=== PATIENT | male | born 1950 | race Caucasian/White ===

== ENCOUNTER 2024-04-19 10:04 | Day surgery (SDC) | payer OTHER, SELFPAY ==
[2024-04-06 08:06] VITALS: BMI 36.2
[2024-04-06 08:34] LABS: % Basophils 0.1 % (0-2); % Eosinophils 1.8 % (0-6); % Immature Granulocytes 0.4 % (0-0.5); % Lymphocytes 29.5 % (20.5-51.1); % Monocytes 7.2 % (1.7-9.3); Absolute Eosinophils 0.1 10^3/uL (0-0.7); Absolute Monocytes 0.5 10^3/uL (0.1-0.6); Absolute Neutrophils 4.2 10^3/uL (1.4-6.5); Hematocrit 41.2 % (39.0-52.0); Hemoglobin 13.9 g/dL (13.0-18.0); Mean Corp Hgb Conc. 33.7 g/dL (33.0-37.0); Mean Corpuscular Hgb 29.8 pg (27.0-31.0); Mean Corpuscular Volume 88.2 fL (80.0-94.0); Mean Platelet Volume 10.6 fL (7.4-10.4); Nucleated Red Blood Cells % 0 % (-); Platelet Count 192 10^3/uL (130-400); Red Blood Cell Count 4.67 10^6/uL (4.70-6.10); Red Cell Dist. Width 13.3 % (11.5-14.5); White Blood Cell Count 6.8 10^3/uL (4.8-10.8)
[2024-04-06 08:38] LABS: ALT (SGPT) 34 U/L (0-50); AST (SGOT) 25 U/L (17-59); Albumin 4.3 g/dl (3.5-5.0); Alkaline Phosphatase 61 U/L (38-126); Blood Urea Nitrogen 33 mg/dl (9-20); Carbon Dioxide 30 mmol/L (22-30); Chloride 98 mmol/L (98-107); Estimated Creatinine Clearance 61 ml/min; Glucose 113 mg/dl (70-99); Magnesium 2.2 mg/dl (1.6-2.3); Potassium 4.3 mmol/L (3.5-5.1); Sodium 135 mmol/L (135-145); Total Bilirubin 0.8 mg/dl (0.2-1.3); eGFR > 60.00
[2024-04-06 08:48] LABS: INR 1.02; PT 13.9 Sec (11.4-14.6)
--- NOTE | 2024-04-06 09:14 | HPS.HSE ---
Family Physician
-
Family Physician: Lorena Mcknight
Chief Complaint
-
Paroxysmal atrial fibrillation.
History of Present Illness
The patient is a 73-year-old male presenting today for paroxysmal atrial fibrillation. The patient reports a rapid heart beat, dizziness, and an overall sense of uneasiness secondary to this diagnosis. He is on current pharmacological
therapy with Metoprolol Succinate. He reports he has been compliant with Eliquis for oral anticoagulation. He notes that his current symptoms greatly interfere with his activities of daily living and overall impact his quality of life. He is
interested in pursuing pulmonary vein isolation for further arrhythmia management. He denies any current complaints today such as chest pain, shortness of breath at rest, nausea, vomiting, diarrhea, lightheadedness, cough, sore throat, or fever.
Medical History
Past Medical History
Past Medical History: Reports Other
Additional Past Medical History:
1. Paroxysmal atrial fibrillation, pharmacological therapy with Metoprolol Succinate and oral anticoagulation with Eliquis.
2. Hypertension.
3. Dyslipidemia.
4. Mild aortic regurgitation.
5. 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
6. Suspected obstructive sleep apnea, sleep study advised.
7. Cholelithiasis, asymptomatic.
8. Fatty liver disease.
9. Hepatic and renal cysts.
10. Multinodular thyroid per chest CT.
11. BPH.
12. Seborrheic keratosis.
13. Skin cancer, status post excision.
14. Obesity, BMI 36.2.
Past Surgical History: Reports Other
Additional Past Surgical History:
1. Prostate surgery x2 for BPH.
2. Pancreatic mass excision (benign).
3. Bladder wall repair of laceration.
4. Colonoscopy x3.
Social History
Tobacco: Non-smoker
Alcohol: Other (Social. )
Personal:
Living: Other (He lives with his in a 3 story home. )
Family History
Family History: Not pertinent
Allergies / Home Medications
Allergy/Medication List:
Home medications:
1. Eliquis 2.5 mg p.o. twice a day.
2. Bee pollen with propolis 1 tablet p.o. twice a day.
3. Flaxseed oil 1000 mg p.o. daily.
4. Metoprolol Succinate 25 mg p.o. daily.
5. Benicar 40-25 mg p.o. daily.
6. Vitamin B complex 1 tablet p.o. daily.
7. Zinc 1 tablet p.o. daily.
Allergies: No known allergies.
Review of Systems
-
A 12 point ROS was completed and negative except as noted: Yes
Physical Exam
Vital Signs
Blood pressure 146/84. Heart rate 61. Respirations 18. Pulse ox 97% on room air.
Height 5 feet, 6.5 inches. Weight 103.3 kg. BMI 36.2.
Physical Exam
General: Well Developed, Well Nourished and No Apparent Distress
HEENT: NormoCephalic, Moist mucous membranes, Atraumatic and PERRLA
Respiratory: Clear
Cardiac: Regular Rhythm
GI: Soft, Non Tender, Non Distended and Other (Obese. )
Musculoskeletal: No Edema and Normal Gait & Station
Skin: Warm and Dry
Neuro: AO x 3 and Nonfocal/grossly intact
Laboratory Results
-
04/06/24 08:13
04/06/24 08:13
Laboratory Results
PT 13.9 Sec (11.4-14.6) 04/06/24 08:13
INR 1.02 04/06/24 08:13
Total Bilirubin 0.8 mg/dl (0.2-1.3) 04/06/24 08:13
AST 25 U/L (17-59) 04/06/24 08:13
ALT 34 U/L (0-50) 04/06/24 08:13
Alkaline Phosphatase 61 U/L (38-126) 04/06/24 08:13
Type and screen A positive.
EKG 04/06/2024: Normal sinus rhythm.
Chest CT 04/06/2024: Normal, conventional pulmonary venous anatomy. No left atrial filling defect/thrombus is identified. Multinodular thyroid gland for which a follow-up thyroid ultrasound is recommended if not previously performed.
Echocardiogram 07/13/2023: Normal biventricular systolic function. Moderate left atrial enlargement. Mild aortic regurgitation. Mild ectasia of proximal ascending aorta at 36 mm in diameter.
Impression/Plan
-
IMPRESSION/PLAN:
1. Paroxysmal atrial fibrillation: The patient will proceed with pulmonary vein isolation with Dr. Valentín Townsend on 04/19/24. The benefits and risks of the procedure have been explained to the patient. The patient understands these risks and wishes
to proceed. He will not be required to undergo a pre-procedural transesophageal echocardiogram as he has been compliant with his home oral anticoagulation. He is aware to continue Eliquis uninterrupted prior to his procedure. He will take no
medications the morning of his ablation.
2. Multinodular thyroid on chest CT: Numerous voice mails were left for the patient regarding his results and need for follow-up ultrasound from 04/07/2024 to 04/14/2024. A copy of his chest CT will be forwarded to his primary care physician for
further follow-up and management. A courtesy call was also provided to Dr. Lorena Mcknight's office pre-operatively. This result, however, should not delay his procedure and he can proceed as planned.
[2024-04-19] VITALS (19 sets, daily range): BP systolic 95–153; BP diastolic 61–92; BMI 35.0
[2024-04-19 12:51] LABS: ACT-LR - POC 247 Seconds (116-155)
[2024-04-19 13:10] LABS: ACT-LR - POC 248 Seconds (116-155)
--- NOTE | 2024-04-19 13:26 | ITS.CL.ABL ---
[facility] - Ablation
Ablation
Procedure Report:
ELECTROPHYSIOLOGY ABLATION STUDY
DATE:: April 19, 2024�����������������������������REFERRING: Dr. Patrick Alba
INDICATION: Paroxysmal supraventricular tachycardia in the form of atrial fibrillation. As above
HISTORY: See H and P.� As above
ANTIARRHYTHMIC DRUG: Metoprolol
PRE-PROCEDURE YUE: No intracardiac thrombus on intracardiac ultrasound
PRESENTING RHYTHM: Sinus bradycardia
'TIME-OUT':��called and confirmed.
SEDATION/ANESTHESIA:��provided via the anesthesia department using general anesthesia (LMA).
INTRAVENOUS/ARTERIAL ACCESS:
Right femoral venous - 8Fr
Left femoral venous - 8 Fr, 6 Fr
Ultrasound guidance for bilateral femoral vein access was utilized by me to obtain access with demonstration of normal anatomy
CHADS-VASC Score:
HAS-Bled Score
PROCEDURE:
1.��A decapolar CS catheter was placed within the CS for mapping and pacing.��This was also used as the reference catheter for the 3-D map.
2. The intracardiac ultrasound catheter was positioned in the RA to identify the FO for targeting of transseptal puncture, assist��in identification of the pulmonary vein ostia, monitoring pre and post ablation pulmonary vein flow velocities,
monitoring for 'bubble' formation during RF application as a sign of thermal injury,��and to monitor for pericardial effusion during mapping and ablation procedure.���Left atrial size, LV ejection fraction, and pulmonary vein flows were monitored
pre and post ablation procedure. The other valves were inspected and found to be free of significant regurgitation or stenosis.
3.��Half of the calculated heparin bolus was administered prior to the first transeptal puncture.��Transseptal puncture was performed to diagnose RA and LA pressure so that safety of LA mapping and ablation could be further assessed, and to access
the left atrium and pulmonary veins for mapping and ablation.��This entailed advancing an 16 [place] sheath�RF wire apparatus with dilator into the superior vena cava and withdrawing both (monitoring intracardiac ultrasound, fluoroscopy and tip
pressure) with the tip oriented toward the atrial septum.��The fossa ovalis was engaged (indicated by sudden displacement of the sheath tip as well as tenting of the fossa seen on intracardiac ultrasound).��Left atrial access required a pass with
the [place]rough needle extended.��Left atrial catheter position was confirmed by pressure monitoring (RA mean pressure 8 mm Hg and LA mean presure 12 mm Hg), LA saturation (99%),��as well as fluoroscopy.��The sheath was advanced over the dilator
and positioned in the left atrium.����The remainder of the calculated heparin bolus was administered and heparin was
infused to maintain ACT at 300 -350 seconds throughout the case.
4.��RA pacing was performed via the proximal decapolar poles and LA pacing was performed via the distal decapolr poles.
5. A quadrapolar catheter was first positioned at the His position for His Bundle recording which was tagged via the 3-D Navex sytem, and then passed to the RVA for RV pacing and recording.
6. The multipolar catheter and the PFA catheter placed in each of the LIPV, LSPV, RSPV and the RIPV.��
7.��Next, a 3-D map was created using Navex.���A 3-D reconstructed CT image was compared to the 3-D Navex map to assist in anatomic interpretation, mapping and ablation.��The CT image and the NavX image were fused.
8. A total of 60 lesions were given to the pulmonary veins and left atrial posterior wall. Entrance exit block was confirmed in all 4 pulmonary veins as well as electrical silence from the roof to the floor of the posterior wall of the left
atrium. The patient was noninducible for other tachyarrhythmia. The patient tolerated the procedure well.
9. Normal sinus node and even function noted.
TOTAL FLOURO TIME: 9.6 minutes 85 mgl
TOTAL RF DURATION: 0 minutes
REVERSAL OF HEPARIN: 40 mg of protamine, slow IV administration
COMPLICATIONS:
None
Intracardiac US shows no pericardial effusion post ablation.
SUMMARY:��
Complex left atrial mapping and ablation.
All 4 pulmonary veins isolated with the left atrial posterior wall isolated with fair
RECOMMENDATIONS:
1. Ambulate in 4 hours
2. Resume anticoagulation
3.��Consider same-day discharge
4.� Anticoagulation x 3 months
Copy to: Dr. Patrick Alba
--- NOTE | 2024-04-19 16:55 | W.PN.UPDATE ---
Update Note
Progress Note Update
Pt seen post PFA. Right groin with moderate size HT just above the puncture site. FOE sutures removed and manual compression held for approx 25min total. Moderate pain with compression. Area softer and HT smaller but still present. Re-eval after 20
minutes, and HT had grown some. Pressure held again, remains tender.
Will admit to IVU
Bedrest for 3 additional hours
Resume eliquis later tonight
CBC, ultrasound in AM
Dr. Townsend aware.
--- NOTE | 2024-04-19 18:19 | PTCARENOTE ---
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 L groin dsg D+I. + DP pulses bilat. Pt denies pain. VSS
[2024-04-19] MEDS: TOPROL XL 25 MG PO (19:31)
[2024-04-19] MEDS: ELIQUIS 5 MG PO (23:37)
--- NOTE | 2024-04-19 23:55 | PTCARENOTE ---
Received patient at change of shift. SR on the monitor, HR in the 70s. R groin ecchymotic but soft, dressing CDI. L groin soft, dressing CDI. No complaints from pt at this time, call schwartz within reach.
[2024-04-20 04:40] VITALS: BP 124/67
[2024-04-20 05:18] LABS: Hemoglobin 12.6 g/dL (13.0-18.0); Mean Corp Hgb Conc. 34.1 g/dL (33.0-37.0); Mean Corpuscular Hgb 30.1 pg (27.0-31.0); Mean Corpuscular Volume 88.3 fL (80.0-94.0); Mean Platelet Volume 10.9 fL (7.4-10.4); Platelet Count 155 10^3/uL (130-400); Red Blood Cell Count 4.19 10^6/uL (4.70-6.10); Red Cell Dist. Width 13.9 % (11.5-14.5); White Blood Cell Count 9.2 10^3/uL (4.8-10.8)
[2024-04-20 05:42] LABS: Blood Urea Nitrogen 31 mg/dl (9-20); Calcium 8.4 mg/dl (8.4-10.2); Carbon Dioxide 26 mmol/L (22-30); Estimated Creatinine Clearance 72 ml/min; Glucose 128 mg/dl (70-99); Magnesium 2.3 mg/dl (1.6-2.3); Potassium 4.2 mmol/L (3.5-5.1); Sodium 134 mmol/L (135-145); eGFR > 60.00
[2024-04-20 05:53] LABS: Chloride 101 mmol/L (98-107)
[2024-04-20 07:28] VITALS: BP 124/75
--- NOTE | 2024-04-20 07:54 | W.PN.CARDCBS ---
Addendum entered and electronically signed by Valentín Townsend MD 04/20/24 09:24:
Patient seen and examined
Agree with STREET AND BUILDING DECORATOR note assessment
Agree with STREET AND BUILDING DECORATOR note and plan
Events of the last 24 hours noted. He had a small hematoma last evening which is soft nontender and without hematoma this morning he is ambulating without pain and hemoglobin is stable
Examination:
Alert and x 3
JVP 6
No acute distress
Nonfocal neurologically
Cor regular
Sinus rhythm on telemetry
Right groin inspected which is soft nontender no palpable thrill
Impression:
Symptomatic paroxysmal atrial fibrillation
post PVI 04/19/24
post procedure R groin hematoma
Hypertension.
Dyslipidemia.
Mild aortic regurgitation.
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
Suspected obstructive sleep apnea, sleep study advised.
Cholelithiasis, asymptomatic.
Fatty liver disease.
Hepatic and renal cysts.
Multinodular thyroid per chest CT.
BPH
Plan:
Groin is stable
tele SR
OAC Eliquis 5mg bid
continue metoprolol xl 25 bid
Activity restrictions reviewed
f/u Dr. Alba in 3 mo
Home today
Original Note:
Today's Communication / Plan
-
stable for d/c home
Impression / Plan
-
PCP: Lorena Mcknight DO
CDY: Patrick Alba MD
Impression:
Symptomatic paroxysmal atrial fibrillation
post PVI 04/19/24
post procedure R groin hematoma
Hypertension.
Dyslipidemia.
Mild aortic regurgitation.
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
Suspected obstructive sleep apnea, sleep study advised.
Cholelithiasis, asymptomatic.
Fatty liver disease.
Hepatic and renal cysts.
Multinodular thyroid per chest CT.
BPH
Plan:
post ablation was for d/c home last night but developed small R groin HT
manual pressure, ecchymotic but soft this am
Hbg stable 12.6
tele SR
OAC Eliquis 5mg bid
continue metoprolol xl 25 bid
Activity restrictions reviewed
f/u Dr. Alba in 3 mo
Home today
Progress Note - Director Institution
Subjective
Date of Service: April 20, 2024
denies cp, sob, mild tenderness R groin
Objective
Labs:
04/20/24 04:54
04/20/24 04:54
Labs
Hgb 12.6 g/dL (13.0-18.0) L 04/20/24 04:54
Hct 37.0 % (39.0-52.0) L 04/20/24 04:54
Plt Count 155 10^3/uL (130-400) 04/20/24 04:54
PT 13.9 Sec (11.4-14.6) 04/06/24 08:13
INR 1.02 04/06/24 08:13
Sodium 134 mmol/L (135-145) L 04/20/24 04:54
Potassium 4.2 mmol/L (3.5-5.1) 04/20/24 04:54
BUN 31 mg/dl (9-20) H 04/20/24 04:54
Creatinine 1.0 mg/dL (0.7-1.3) 04/20/24 04:54
Glucose 128 mg/dl (70-99) H 04/20/24 04:54
Vital Signs and I&O:
Vital Signs
Temp Pulse Resp BP Pulse Ox
97.6 F 63 20 124/75 96
04/20/24 07:28 04/20/24 07:45 04/20/24 07:28 04/20/24 07:28 04/20/24 07:28
Vital Signs
Temp Pulse Resp BP Pulse Ox
97.6 F 63 20 124/75 96
04/20/24 07:28 04/20/24 07:45 04/20/24 07:28 04/20/24 07:28 04/20/24 07:28
Physical Exam
Physical Exam
NAD, AOx3
S1, S2, RRR
CTAB, non labored
SNTND bsx4
L groin c/d/i, soft
R groin ecchymotic, soft
--- NOTE | 2024-04-20 08:12 | W.DS.TRANS ---
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
-
Discharge Instructions:
Sleep Apnea Risk Intermediate
Discharge Diagnosis/Procedures AFib, s/p ablation
Diet Low Sodium
Driving Restrictions No driving for 24 hours
Instructions: Catheter ablation for the heart
Low-sodium diet
Stand-Alone Forms: DC Instructions- Cath/EP Lab
Return to Work
Changes to Home Medications: No
Discharge Medications:
DC Medications w/original date entered in [facility]
Bee Pollen With Propolis 1 tab PO BID 04/04/24
Zinc Quercetin 1 tab PO DAILY 04/04/24
flaxseed oil 1,000 mg capsule 1,000 mg PO DAILY 04/04/24
metoprolol succinate 25 mg tablet,extended release 24 hr 25 mg PO BID 04/04/24
olmesartan 40 mg-hydrochlorothiazide 25 mg tablet (Benicar HCT) 1 tab PO DAILY 04/04/24
vitamin B complex 1 tab PO DAILY 04/04/24
apixaban 5 mg tablet (Eliquis) 5 mg PO BID 04/06/24
Home Medication Changes
Pending Results: No
--- NOTE | 2024-04-20 08:26 | PTCARENOTE ---
Assumed care of pt from prev nsg shift; Pt AAOx3 w/no C/O CP or SOB. Pt up ambulating in the , anticipating D/C today. Pt's VSS w/HR 60's & BP 124/75 this AM. Pt's L groing site w/dressing C/D/I w/no signs or symptoms of bleeding or hematoma. R
groin site w/dressing C/D/I w/ecchymosis surrounding area w/hematoma improved & no signs of bleeding. Pt w/+ pedal pulses bilat. Pt w/call schwartz within reach & plan of care ongoing.
[2024-04-20] MEDS: ELIQUIS 5 MG PO (09:22)
[2024-04-20] MEDS: BENICAR 40 MG PO (09:22)
[2024-04-20] MEDS: TOPROL XL 25 MG PO (09:22)
[2024-04-20] MEDS: ORETIC 25 MG PO (09:22)
--- NOTE | 2024-04-20 10:33 | CM ---
Chart reviewed. Patient is independent of ADLS, lives with his in a [address], 2 [address], 0 DME. Plan is for the patient to return home.
--- NOTE | 2024-04-20 10:45 | PTCARENOTE ---
Pt's IV line & court monitor D/C'd; Discussed D/C instructions w/pt & pt's son. Pt left the hospital w/personal belongings incl cell phone. Pt ambulate out w/son providing transportation home.
== END 2024-04-20 10:50 | disposition home or self-care (01) ==
LOC: CATH 10:04
PROVIDERS: Nurse Practitioner; ATTENDING PHYSICIAN Internal Medicine Cardiovascular Disease; FAMILY PHYSICIAN Family Medicine; OTHER PHYSICIAN Internal Medicine Cardiovascular Disease
DX: I48.0 Paroxysmal atrial fibrillation (principal); Z79.899 Other long term (current) drug therapy; E78.5 Hyperlipidemia, unspecified; I10 Essential (primary) hypertension; K80.20 Calculus of gallbladder without cholecystitis without obstruction; K76.0 Fatty (change of) liver, not elsewhere classified; E04.2 Nontoxic multinodular goiter; N40.0 Benign prostatic hyperplasia without lower urinary tract symptoms; L82.1 Other seborrheic keratosis; Z85.828 Personal history of other malignant neoplasm of skin; E66.9 Obesity, unspecified; Z68.36 Body mass index [BMI] 36.0-36.9, adult; G47.33 Obstructive sleep apnea (adult) (pediatric); I35.1 Nonrheumatic aortic (valve) insufficiency; Z79.01 Long term (current) use of anticoagulants; I47.19 Other supraventricular tachycardia; N28.1 Cyst of kidney, acquired; Z98.890 Other specified postprocedural states
CPT/HCPCS: C1759; C1892; C1730; C1894; 36415; 75572; 80048; 80053; 83735; 85025; 85027; 85347; 85610; 86803; 86850; 86900; 86901; 93005; 93656; 93657; C1732; C1733; C1766; Q9967

== ENCOUNTER → 2024-04-26 14:12 | Outpatient (REF) | payer OTHER, SELFPAY | LOC: RAD 14:12 | PROVIDERS: ATTENDING PHYSICIAN Internal Medicine Cardiovascular Disease; FAMILY PHYSICIAN Family Medicine; REFERRING PHYSICIAN Internal Medicine Cardiovascular Disease | DX: T14.8XXA Other injury of unspecified body region, initial encounter (principal) | CPT/HCPCS: 93926 ==